=== PATIENT | female | born 1990 | race Caucasian/White ===

== ENCOUNTER → 2016-12-21 | Outpatient (CLI) | payer OTHER ==
--- NOTE | 2016-12-21 15:20 | DIAGNOSTIC IMAGING REPORT ---
LEFT FOOT MIN 3 VIEWS ROUTINE CLINICAL HISTORY: LEFT FOOT PAIN COMPARISON: None. DISCUSSION: No acute fractures are visualized. No destructive lesions are evident. There is a modeling deformity involving the medial base of the second metatarsal. This is felt to be chronic. IMPRESSION: No acute fractures. No destructive lesions are visualized. Electronically signed by: Anselmo Duvall M.D. 12/21/2016 3:19 PM Dictated Date/Time: 12/21/2016 3:18 PM
== END | disposition home or self-care (01) ==
LOC: C.RAD1850 14:53
PROVIDERS: ATTEND Nurse Practitioner Adult Health
DX: M79.672 Pain in left foot (principal)

== ENCOUNTER 2017-08-23 15:58 | Emergency (ER) | payer OTHER ==
[~2017-08-23] VITALS: Ht 162.6 cm; Wt 64.6 kg
[2017-08-23 16:16] VITALS: BP 129/88; PULSE 69; TEMP 36.8; O2SAT 98; Ht 162.6 cm; Wt 64.6 kg
== END 2017-08-23 16:24 | disposition left against medical advice (07) ==
LOC: C.EDB 15:58
DX: R51 Headache (principal)

== ENCOUNTER → 2017-08-31 | Outpatient (CLI) | payer OTHER ==
--- NOTE | 2017-08-31 16:54 | DIAGNOSTIC IMAGING REPORT ---
MRI OF THE BRAIN WITHOUT CONTRAST CLINICAL HISTORY: Persistent headache. Blurred vision, dizziness. COMPARISON STUDY: None. FINDINGS: Sagittal T1, axial diffusion, proton density and T2 weighted axial, coronal FLAIR, and axial T1-weighted images were acquired. No intra or extra-axial mass lesions are visualized Axial diffusion-weighted images reveal no evidence of acute or subacute infarction. There is no evidence of ventricular dilatation. Proton density T2-weighted and FLAIR images reveal no significant intraparenchymal signal abnormalities. There are no abnormal flow voids. There is partial opacification of the right maxillary sinus IMPRESSION: 1. Inflammatory changes within the right maxillary sinus. Otherwise normal MRI of the brain Electronically signed by: Anselmo Duvall M.D. 08/31/2017 4:53 PM Dictated Date/Time: 08/31/2017 4:51 PM
== END | disposition home or self-care (01) ==
LOC: C.MRI 16:07
PROVIDERS: ATTEND Family Medicine
DX: J32.9 Chronic sinusitis, unspecified (principal); G43.801 Other migraine, not intractable, with status migrainosus

== ENCOUNTER → 2017-10-23 | Outpatient (CLI) | payer OTHER ==
--- NOTE | 2017-10-23 11:08 | DIAGNOSTIC IMAGING REPORT ---
MRA HEAD WITHOUT CONTRAST HISTORY: Headaches WORSENING AGARWAL TECHNIQUE: 3-D [id number] MRA of the brain was performed without contrast. COMPARISON STUDY: 08/31/2017 FINDINGS: Visualized intracranial internal carotid arteries, distal vertebral arteries, and basilar artery are widely patent. 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 Note is made of complete opacification of the right maxillary sinus IMPRESSION: 1. No significant stenosis, occlusion, or aneurysm within the [place]. 2. Opacified right maxillary sinus The above report was generated using voice recognition software. It may contain grammatical, syntax or spelling errors. Electronically signed by: Sudeep Darling M.D. 10/23/2017 11:07 AM Dictated Date/Time: 10/23/2017 11:04 AM
== END | disposition home or self-care (01) ==
LOC: C.MRI 10:18
PROVIDERS: ATTEND Nurse Practitioner Family
DX: R51 Headache (principal)